=== PATIENT | female | born 1955 | race Caucasian/White ===

== ENCOUNTER 2018-02-09 12:00 | Day surgery (SDC) | payer OTHER ==
--- NOTE | 2018-02-08 10:38 | RAD REPORT ---
EXAM DESCRIPTION: RADOP - Outpt Chest Pa/Lat (2 Views) - 02/08/2018 10:32 am CLINICAL HISTORY: Chest pain. COPD. Hypertension. COMPARISON: 04/08/2011 TECHNIQUE: PA and lateral views of the chest were obtained. FINDINGS: The lungs are hyperexpanded compatible with COPD. The heart is upper limit of normal in si ze. No fracture or aggressive bony process. IMPRESSION: COPD without acute process identified.
[2018-02-08 10:58] LABS: Absolute Lymphocytes (CBC) 1.9 K/uL (0.7-4.9); Absolute Monocytes 0.5 K/uL (0.1-1.3); Absolute Neutrophil 5.3 K/uL (1.8-8.0); Basophils % 0.6 % (0-1.3); Eosinophils % 1.7 % (0-4.4); Hematocrit 43.3 % (36.0-45.0); Lymphocytes % 23.9 % (15.3-44.8); MCH 31.9 pg (27.0-35.0); MCV 93.9 fL (80-100); MPV 8.6 fL (7.6-11.3); Monocytes % 6.2 % (3.3-12.3); RBC Red Blood Cell Count 4.61 M/uL (3.86-4.86)
[2018-02-08 11:08] LABS: Urine Appearance CLEAR; Urine Bilirubin NEGATIVE (NEG); Urine Blood NEGATIVE (NEG); Urine Color YELLOW; Urine Glucose NEGATIVE (NEG); Urine Protein NEGATIVE (NEG); Urine Specific Gravity <=1.005 (1.005-1.030); Urine Urobilinogen 0.2 mg/dL (0.2-1.0)
[2018-02-08 11:16] LABS: Urine Microscopic Reflex NO UMIC
[2018-02-09] MEDS ORDERED: Ringers Lactate 1,000 ML IV ONE (12:25)
[2018-02-09] MEDS ORDERED: CEFAZOLIN/SWI 1gm 1 GM/10 ML SYR ONE (12:25)
[2018-02-09] MEDS ORDERED: PROPOFOL 200 MG/20 ML VIAL IV ONE (13:01)
[2018-02-09] MEDS ORDERED: LIDOCAINE 2% MPF 5 ML VIAL ONE (13:01)
[2018-02-09] MEDS ORDERED: MIDAZOLAM HCL 2 MG/2 ML INJ ONE (13:01)
[2018-02-09] MEDS ORDERED: ONDANSETRON 4 MG/2 ML VIAL ONE (13:02)
[2018-02-09] MEDS ORDERED: FENTANYL CITR 100 MCG/2 ML ONE ×2 (13:02→13:52)
[2018-02-09] MEDS ORDERED: Mastisol Adhesive Liq ONE (14:28)
[2018-02-09] MEDS: MEPERIDINE HCL 25 MG/0.5 ML ONE ×2 (14:39→14:42)
[2018-02-09] MEDS: MORPHINE 4 MG/ML SYR ONE ×2 (15:00→15:13)
[2018-02-09] MEDS ORDERED: MEPERIDINE HCL 50 MG/ML AMP ONE (15:05)
[2018-02-09] MEDS ORDERED: DIPHENHYDRAMINE 50 MG/ML VIAL ONE (15:12)
[2018-02-09] MEDS ORDERED: CODEINE 30MG/APAP 300MG TAB ONE (16:07)
--- NOTE | 2018-02-10 09:18 | OP ---
Surgeon: Car Del Angel MD Associate Financial Advisor: Stevenson. Preoperative Diagnosis: Degeneration of left trapezium. Postoperative Diagnosis: Degeneration of left trapezium. Procedure Performed: Trapeziectomy, Morgan implant, and beak ligament reconstruction splint. Anesthesia: General. Procedure In Detail: After satisfactory induction of general anesthesia, the left arm prepped with Betadine scrub, Betadine paint, dry sterile drapes, placed in the usual manner. The arm was elevated, exsanguinated with an Esmarch , tourniquet inflated to 250 mmHg. Hand placed on the [place] table. A bayonet shaped incision made over the thumb metacarpal and over the flexor carpi radialis. Dissection proceeded down with a scalpel and then tenotomy scissors. Branches of the radial nerve were identified and retracted. Incision was made down the periosteum over the metacarpal thumb and dissection proceeded between the abductor and extensor pollicis brevis. The incision was made into the capsule and the trapezium removed piecemeal with a rongeur. The bone was cut with a transverse saw of the first metacarpal and then it was cored out with a broaches. Sizers were placed and appropriate size with #1. At this point, we then made a cut to reconstruct the beak ligament. The patient has had a counter incision made in the forarm the muscle tendon junction . a wire was used to strip the tendon into 2 halves, radial ulnar and the tendon was then passed into the previous resection site of the trapezium. The patient then had the wound irrigated with saline. The partial tendon was made into the ligament. The passage through the hole made by Eddie bur and sewn with 4-0 Mersilene. Then, a loop was made again with the tendon then the tendon was wraped around the implant and the capsule and tendon passed ulnar to the abductor pollicis longus and then under the extensor pollicis brevis, sewn back to itself. tourniquet released. Electrocautery used for hemostasis. Wound was closed with upside down running 4-0 PDS on both wounds. Dressings of tincture of benzoin, Steri-Strips, 2 inch Philomena, and thumb spica splint holding the thumb and extension at the IPJ, and mcp joint. The patient tolerated the procedure well and returned to recovery GH/MODL Voice ID: [id number] Report ID: [id number] MTDOlive
== END 2018-02-09 16:41 | disposition home or self-care (01) ==
LOC: OR 12:00
PROVIDERS: ATTEND Specialist
PROC: 0RU Upper Joints, Supplement (ICD-10-PCS; principal; 2018-02-09 13:00)
DX: M89.8X4 Other specified disorders of bone, hand (principal); M81.0 Age-related osteoporosis without current pathological fracture; I10 Essential (primary) hypertension; J44.9 Chronic obstructive pulmonary disease, unspecified; G47.33 Obstructive sleep apnea (adult) (pediatric); F17.200 Nicotine dependence, unspecified, uncomplicated
CPT/HCPCS: 36415; 71046; 81003; 85025; 88304; 88305; 88311; J0690; J2175; J2250; J2405; J3010

== ENCOUNTER 2018-08-19 07:59 | Day surgery (SDC) | payer OTHER ==
[~2018-08-19 07:59] MED LIST: FENTANYL CITR 100 MCG/2 ML ONE; MIDAZOLAM HCL 2 MG/2 ML INJ ONE; ONDANSETRON 4 MG/2 ML VIAL ONE; PROPOFOL 200 MG/20 ML VIAL IV ONE
[2018-08-19] MEDS ORDERED: LIDOCAINE 1% MPF 2 ML AMPULE ONE (08:01)
--- OUTSIDE RECORDS SUMMARY | 2018-08-19 08:10 | XMS REPORT | Clinical Summary ---
:1955 Author Organization [facility] Address [address] [place] [address] Care Team Providers Name Role Phone Unavailable Primary Care Provider Unavailable Allergies Not on File Current Medications Not on file Active Problems Not on file Social History Tobacco Use Types Packs/Day Years Used Date Never Assessed Sex Assigned at Date Recorded Not on file Last Filed Vital Signs Not on file Plan of Treatment Not on file Results Not on fileafter 08/18/2017
[2018-08-19] MEDS ORDERED: CEFAZOLIN/SWI 1gm 1 GM/10 ML SYR ONE (08:15)
[2018-08-19] MEDS ORDERED: Ringers Lactate 1,000 ML IV ONE (08:15)
[2018-08-19] MEDS ORDERED: NA CHLORIDE 0.9% 0 ML ONE (08:23)
[2018-08-19] MEDS ORDERED: Mastisol Adhesive Liq ONE ×2 (08:24→11:05)
[2018-08-19] MEDS ORDERED: FENTANYL CITR 100 MCG/2 ML ONE (10:08)
[2018-08-19] MEDS: MORPHINE 4 MG/ML SYR ONE ×6 (11:40→12:24)
[2018-08-19] MEDS ORDERED: CODEINE 30MG/APAP 300MG TAB ONE (12:52)
--- NOTE | 2018-08-19 22:42 | OP ---
Surgeon: Car Del Angel MD Fish Conservationist: Stevenson. Preoperative Diagnosis: Degenerative right trapezium and cyst of the right middle finger DIP. Postoperative Diagnosis: Degenerative right trapezium and cyst of the right middle finger DIP. Procedure: Trapezium resection, implant reconstruction, ligament reconstruction, and excision of exo stosis and mucous cyst from the right middle finger, splint. Anesthesia: General. Procedure In Detail: After satisfactory induction of general anesthesia, right arm was prepped with Betadine scrub, Betadine paint, dry sterile drapes applied in usual manner. The arm was elevated and exsanguinated with Esmarch. Tourniquet inflated to 250 mmHg. Hand placed on the [place] table. A curvilinear incision was made over the thumb metacarpal extending over the flexor carpi radialis. Di ssection proceeded down through skin and subcutaneous tissue. Radial nerve branch was identified and retracted. Incision was made between the abductor and extensor pollicis brevis. Dissection proceed ed down to the periosteum, and the joint was opened. A saw was used to cut the metacarpal that is go ing up the edge, and the saw was used to cut the trapezium in half. It was cracked with a periosteal elevator and removed in piecemeal with a rongeur. All portions were removed and the was used to make a canal in the metacarpal and then were used from the Morgan set, #2 appropr iate size the sizer was placed. A Morgan bur was used to create a hole to reconstruct the beak liga ment. The brown bur was then used again on the epithelioid to create a hollow for the implanted line without dislocating. Once this was completed, the patient then underwent partial flexor carpi radia lis tendon harvest. This was done making a counter incision in the forearm. The tendon was put in m uscle cutaneous junction, from the wire pointing from the distal to proximal and then the t endon was advanced into the site of the previous trapezium. At this point, it was passed through the hole made in the metacarpal head draped around itself sewn with 4-0 Mersilene. Then, the implant wa s placed. The ligament was then expecting lasting around the prosthesis all the way to the extensor pollicis brevis and then lip under the adductor tendon was looped back over the periphery extensor po llicis brevis again. This was done with and 4-0 Mersilene. Attention was then turned to the right m iddle finger dorsal surface. Curvilinear incision was made over the bony exostosis cyst over the rad ial aspect of the DIP joint. The flap was elevated. The mass was excised and then the bony sides we re removed with a rongeur and filed. Electrocautery was used over the remaining site. Tourniquet wa s released for hemostasis. The wounds were closed with 4-0 Prolene simple sutures. The forearm and metacarpal wounds were closed with running nonlocking 4-0 PDS. Tincture of benzoin and Steri-Strips were applied over the forearm and hand, the finger heads with 2 inch Philomena, Kerlix, and a splint hold ing the wrist in 10 degrees of dorsiflexion. The patient tolerated the procedure well and returned t o recovery room. ANGELIQUE Voice ID: [id number] Report ID: [id number]
== END 2018-08-19 15:00 | disposition home or self-care (01) ==
LOC: OR 07:59
PROVIDERS: ATTEND Specialist
PROC: 0PQ Upper Bones, Repair (ICD-10-PCS; 2018-08-19)
PROC: 0PBT0ZZ Excision of Right Finger Phalanx, Open Approach (ICD-10-PCS; 2018-08-19)
PROC: 0RR Upper Joints, Replacement (ICD-10-PCS; principal; 2018-08-19 09:00)
DX: M89.8X4 Other specified disorders of bone, hand (principal); M85.641 Other cyst of bone, right hand; I10 Essential (primary) hypertension; J44.9 Chronic obstructive pulmonary disease, unspecified; F17.200 Nicotine dependence, unspecified, uncomplicated
CPT/HCPCS: 88304; 88305; 88311; J0690; J2001; J2250; J2405; J3010; J7030

== ENCOUNTER → 2023-12-16 | Emergency (ER) | payer MEDICARE ==
[~2023-12-16] MED LIST changes: +HYDROCODONE/APAP 5/325 MG TAB ONE; -MIDAZOLAM HCL 2 MG/2 ML INJ ONE; +NA CHLORIDE 0.9% 1,000 ML ONE; -PROPOFOL 200 MG/20 ML VIAL IV ONE
--- OUTSIDE RECORDS SUMMARY | 2023-12-16 11:26 | XMS REPORT | Continuity of Care Document ---
Author Name Unknown Address [address] [place] [address] [facility] Address [address] [place] [address] [address] [place] [address] Care Team Providers Care Advertising Coordinator Name Role Phone [email or web address]_Kadiyala_S Attending Clinician Unavaila ble Deavers_C Attending Clinician Unavailable Hunt_A Attending Clinician Unavailable PEDROSO_V Attending Clinician Unavailable GC_GCBZW_Kadiyala_S Admitting Clinician Unavaila ble Deavers_C Admitting Clinician Unavailable Hunt_A Admitting Clinician Unavailable PEDROSO_V Admitting Clinician Unavailable Payers Payer Name Policy Type Policy Number Effective Date Expirati on Date Source [facility] (MEDICARE REPLACEMENT HMO) [id number] 2022 00:00:00 Encounters Start Date/Time End Date/Time Encounter Type Admission Type Attending Clinicians Care Facility Care Department Encounter ID Source 2023-12-16 00:00:00 2023-12-16 00:00:00 Outpatient GC_GCBZW_Ka diyala_S PRIV PRIV [id number] [facility] 2023-12-09 00:00:00 2023-12-09 00:00:00 Outpatient GC_GCBZW_Ka diyala_S PRIV PRIV [id number] [facility] 2023-10-28 00:00:00 2023-10-28 00:00:00 Outpatient GC_GCBZW_Ka diyala_S PRIV PRIV [id number] [facility] 2023-09-18 00:00:00 2023-09-18 00:00:00 Outpatient GC_GCBZW_Ka diyala_S PRIV PRIV [id number] [facility] 2023-01-30 00:00:00 2023-01-30 00:00:00 Outpatient Deavers_C DMG DMG [id number] [facility] 2023-01-30 00:00:00 2023-01-30 00:00:00 Outpatient Deavers_C DMG DMG [id number] [facility] 2022-09-05 00:00:00 2022-09-05 00:00:00 Outpatient Hunt_A DMG DMG [id number] [facility] 2022-06-06 07:11:00 2022-06-06 07:11:00 Outpatient PEDROSO_V DMG DMG [id number] [facility] 2022-05-09 05:55:00 2022-05-09 05:55:00 Outpatient PEDROSO_V DMG DMG [id number] [facility] 2022-01-08 11:30:00 2022-01-08 11:30:00 Outpatient DMG DMG [id number] [facility] 2022-01-03 12:00:00 2022-01-03 12:00:00 Outpatient DMG DMG [id number] [facility]
[2023-12-16 12:55] LABS: Absolute Lymphocytes (CBC) 1.3 K/uL (0.7-4.9); Hematocrit 43.2 % (36.0-45.0); Lymphocytes % 14.6 % (15.3-44.8); MCV 97.5 fL (80-100); MPV 7.9 fL (7.6-11.3); Platelets 240 thou/uL (152-406); RBC Red Blood Cell Count 4.43 M/uL (3.86-4.86)
[2023-12-16 12:59] LABS: Specific Gravity 1.014 (1.005-1.030); Urine Bilirubin NEGATIVE (Negative); Urine Blood Negative (Negative); Urine Clarity Clear (Clear); Urine Color Light-Yellow (Yellow); Urine Glucose NEGATIVE (Negative); Urine Protein NEGATIVE (Negative); Urine Urobilinogen Normal (Normal)
[2023-12-16 13:12] LABS: Albumin 3.8 g/dL (3.4-5.0); Bilirubin Total 1.1 mg/dL (0.2-1.0); Potassium 3.5 mEq/L (3.5-5.1)
--- NOTE | 2023-12-16 13:29 | RAD REPORT ---
EXAM DESCRIPTION: RAD - Chest Single View - 12/16/2023 1:09 pm CLINICAL HISTORY: CHEST PAIN Chest pain. COMPARISON: CHEST SINGLE VIEW dated 04/08/2011 FINDINGS: Portable technique limits examination quality. The lungs are emphysematous but grossly clear. The heart is normal in size. No displaced fractures. IMPRESSION: No acute intrathoracic process suspected.
--- NOTE | 2023-12-16 13:42 | RAD REPORT ---
EXAM DESCRIPTION: CT - Thorax W/ Con CLINICAL HISTORY: Chest pain CHEST PAIN COMPARISON: No comparisons FINDINGS: The lungs are diffusely emphysematous but clear. No pleural thickening or pleural effusion . No pneumothorax. Small hiatal hernia noted. No axillary, mediastinal or hilar adenopathy. Subtle nondisplaced fracture left anterolateral fourth and fifth rib. Healing subacute to chronic fra cture noted left lateral seventh and eighth ribs with sclerosis. Dilatation of the right renal pelvis is partially visualized. All CT scans are performed using dose optimization technique as appropriate and may include automated exposure control or mA/KV adjustment according to patient size. IMPRESSION: Subtle nondisplaced left anterolateral fourth and fifth rib fractures suspected without underlying pneumothorax.
--- NOTE | 2023-12-16 14:56 | EDPHYS ---
Physician Documentation [facility] [place] Name: Cordelia Rojas Age: 67 yrs Sex: Female : 1955 Arrival Date: 12/16/2023 Time: 11:23 Bed 15 Private MD: ED Physician Sunil Caballero HPI: 12/16 14:49 This 67 yrs old Female presents to ER via Ambulatory with complaints of Rib licha Pain. 14:49 The patient or guardian reports chest pain that is located primarily in the anterior licha chest wall, left lateral posterior chest and left lateral anterior chest. Onset: The symptoms/episode began/occurred 2 day(s) ago. The pain does not radiate. Associated signs and symptoms: Pertinent positives: shortness of breath. The chest pain is described as sharp. Duration: The patient or guardian reports multiple episodes, that wax and wane. Modifying factors: The symptoms are alleviated by remaining still, the symptoms are aggravated by cough, deep breath, movement, palpation of area. Severity of pain: At its worst the pain was moderate in the emergency department the pain is unchanged. The patient has not experienced similar symptoms in the past. Historical: - Allergies: 11:44 No Known Allergies; ap3 - PMHx: 11:44 Chronic obstructive lung disease; Hypertensive disorder; Hypercholesterolemia; ap3 - Immunization history:: Client reports receiving the 2nd dose of the Covid vaccine, Flu vaccine is up to date. - Social history:: Smoking status: Patient reports the use of cigarette tobacco products, denies chronic smoking, but will smoke occasionally, Reported history of juuling and/or vaping. - Family history:: not pertinent. ROS: 14:49 Constitutional: Negative for fever, chills, and weight loss, Eyes: Negative for injury, licha pain, redness, and discharge, ENT: Negative for injury, pain, and discharge, Neck: Negative for injury, pain, and swelling, Cardiovascular: Negative for chest pain, palpitations, and edema, Abdomen/GI: Negative for abdominal pain, nausea, vomiting, diarrhea, and constipation, Back: Negative for injury and pain, : Negative for injury, bleeding, discharge, and swelling, MS/Extremity: Negative for injury and deformity, Skin: Negative for injury, rash, and discoloration, Neuro: Negative for headache, weakness, numbness, tingling, and seizure, Psych: Negative for depression, anxiety, suicide ideation, homicidal ideation, and hallucinations, Allergy/Immunology: Negative for hives, rash, and allergies, Endocrine: Negative for neck swelling, polydipsia, polyuria, polyphagia, and marked weight changes, Hematologic/Lymphatic: Negative for swollen nodes, abnormal bleeding, and unusual bruising, 14:49 Respiratory: Positive for cough, pleurisy, of the left lateral posterior chest and left lateral anterior chest, shortness of breath, Exam: 14:49 Constitutional: This is a well developed, well nourished patient who is awake, alert, licha and in no acute distress. Head/Face: Normocephalic, atraumatic. Eyes: Pupils equal round and reactive to light, extra-ocular motions intact. Lids and lashes normal. Conjunctiva and sclera are non-icteric and not injected. Cornea within normal limits. Periorbital areas with no swelling, redness, or edema. ENT: Nares patent. No nasal discharge, no septal abnormalities noted. Tympanic membranes are normal and external auditory canals are clear. Oropharynx with no redness, swelling, or masses, exudates, or evidence of obstruction, uvula midline. Mucous membranes moist. Neck: Trachea midline, no thyromegaly or masses palpated, and no cervical lymphadenopathy. Supple, full range of motion without nuchal rigidity, or vertebral point tenderness. No Meningismus. Chest/axilla: Normal chest wall appearance and motion. Nontender with no deformity. No lesions are appreciated. Cardiovascular: Regular rate and rhythm with a normal S1 and S2. No gallops, murmurs, or rubs. Normal PMI, no JVD. No pulse deficits. Abdomen/GI: Soft, non-tender, with normal bowel sounds. No distension or tympany. No guarding or rebound. No evidence of tenderness throughout. Back: No spinal tenderness. No costovertebral tenderness. Full range of motion. Female : Normal external genitalia. Skin: Warm, dry with normal turgor. Normal color with no rashes, no lesions, and no evidence of cellulitis. MS/ Extremity: Pulses equal, no cyanosis. Neurovascular intact. Full, normal range of motion. Neuro: Awake and alert, GCS 15, oriented to person, place, time, and situation. Cranial nerves II-XII grossly intact. Motor strength 5/5 in all extremities. Sensory grossly intact. Cerebellar exam normal. Normal gait. Psych: Awake, alert, with orientation to person, place and time. Behavior, mood, and affect are within normal limits. 14:49 Chest/axilla: Inspection: normal, Palpation: tenderness, that is moderate, of the left lateral posterior chest and left lateral anterior chest, Axilla: are normal, Breasts: are normal, Lymph nodes: lymphadenopathy is not appreciated, 14:49 Respiratory: the patient does not display signs of respiratory distress, Respirations: normal, Breath sounds: are clear throughout, Respiratory rate: 16 Vital Signs: 11:42 BP 143 / 95; Pulse 76; Resp 17; Temp 98.4; Pulse Ox 100% ; Weight 65.77 kg; Height 5 ap3 ft. 5 in. ; Pain 6/10; 14:07 BP 108 / 78; Pulse 78; Resp 16; Pulse Ox 100% on R/A; mb9 15:04 BP 116 / 82; Pulse 74; Resp 18; Pulse Ox 100% on R/A; mb9 11:42 Body Mass Index 24.13 (65.77 kg, 165.1 cm) ap3 11:42 Pain Scale: Adult ap3 Maribell Coma Score: 14:49 Eye Response: spontaneous(4). Motor Response: obeys commands(6). Verbal Response: licha oriented(5). Total: 15. MDM: 11:27 Patient medically screened. licha 14:53 Differential diagnosis: Blunt Chest Trauma Chest Wall Contusion Chest Wall Injury licha Pneumomediastinum Pneumopericardium Pneumothorax Pulmonary Contusion Rib Fracture. Data reviewed: vital signs, nurses notes, lab test result(s), radiologic studies, CT scan, plain films. Consideration of Admission/Observation Escalation of care including admission/observation considered. I considered the following discharge prescriptions or medication management in the emergency department Medications were administered in the Emergency Department. See MAR. Independent interpretation of the following test(s) in the Emergency Department X-Ray: My interpretation is copd. Test considered but Not performed: MRI: no mri chest. Care significantly affected by the following chronic conditions: Hypertension, Chronic Obstructive Pulmonary Disease, Obesity. 12/16 12: Order name: CBC with Diff; Complete Time: 14: [facility] 12/16 12:07 Order name: Comprehensive Metabolic Panel; Complete Time: 14:07 [facility] 12/16 12:07 Order name: Urinalysis w/ reflexes; Complete Time: 14:07 [facility] 12/16 12:07 Order name: Chest Single View XRAY; Complete Time: 14:07 [facility] 12/16 12:07 Order name: CT Chest W/ Con; Complete Time: 14:07 [facility] 12/16 14:08 Order name: INCENTIVE SPIROMETRY licha Administered Medications: 12:40 Drug: Ondansetron IVP 4 mg IVP once; over 2 minutes Route: IVP; Site: right antecubital;mb9 14:08 Follow up: Response: No adverse reaction mb9 12:45 Drug: NS 0.9% IV 500 ml IV at bolus once Route: IV; Rate: bolus; Site: right mb9 antecubital; 12:45 Drug: fentaNYL (PF) IVP 50 mcg IVP once Route: IVP; Site: right antecubital; mb9 14:08 Follow up: Response: No adverse reaction mb9 14:13 Drug: HYDROcodone-acetaminophen PO 5 mg-325 mg 1 tabs PO once Route: PO; mb9 14:23 Follow up: Response: No adverse reaction mb9 14:28 Not Given (Patient Refused): hydrocodone-acetaminophen5 mg-325 mg 1 tabs PO once mb9 Disposition Summary: 12/16/23 14:56 Discharge Ordered Notes: Location: Home [facility] Problem: new [facility] Symptoms: have improved licha Condition: Stable licha Diagnosis - Multiple fractures of ribs, left side - posterior lateral 3rd \T\ 4th licha Followup: licha - With: Private Physician - When: 2 - 3 days - Reason: Recheck today's complaints, Continuance of care, Re-evaluation by your physician Followup: licha - With: Edgar Burnham MD - When: 2 - 3 days - Reason: Recheck today's complaints, Continuance of care, Re-evaluation by your physician Discharge Instructions: - Discharge Summary Sheet [facility] - Rib Fracture [facility] - How to Use an Incentive Spirometer [facility] - Rib Fracture, [id number] [facility] Forms: - Medication Reconciliation Form [facility] - Thank You Letter licha - Antibiotic Education licha - Prescription Opioid Use licha - Patient Portal Instructions [facility] - Leadership Thank You Letter [facility] Prescriptions: - acetaminophen-codeine 300-30 mg Oral tablet - take 2 tablet ORAL route every 6 hours as needed for pain; 26 tablet; Refills: licha 0, Product Selection Permitted - Ibuprofen 600 mg Oral tablet - take 1 tablet ORAL route every 8 hours As needed take with food; 21 tablet; licha Refills: 0, Product Selection Permitted - Valium 2 mg Oral Tablet - take 1 tablet ORAL route every 8 hours As needed; 20 tablet; Refills: 0, licha Product Selection Permitted Signatures: Dispatcher [employer] Sunil Thompson MD MD cha Prokisch, Amanda, RN RN ap3 Veronica Monte RN RN mb9
--- NOTE | 2023-12-16 14:56 | ER ---
Nurse's Notes [facility] [place] Name: Cordelia Rojas Age: 67 yrs Sex: Female : 1955 Arrival Date: 12/16/2023 Time: 11:23 Bed 15 Private MD: Diagnosis: Multiple fractures of ribs, left side-posterior lateral 3rd \\T\\ 4th Presentation: 12/16 11:42 Chief complaint: Patient states: she was at the gym 2-3 days ago, when she felt a "pop" ap3 in her left ribcage. patient reports the pain has been getting increasingly worse over time. patient states the pain is better when she lays down, and worse when she is sitting. patient currently rates her pain as a 6/10 on the pain scale. Coronavirus screen: At this time, the client does not indicate any symptoms associated with coronavirus-19. Ebola Screen: No symptoms or risks identified at this time. Initial Sepsis Screen: Does the patient meet any 2 criteria? No. Patient's initial sepsis screen is negative. Does the patient have a suspected source of infection? No. Patient's initial sepsis screen is negative. Risk Assessment: Do you want to hurt yourself or someone else? Patient reports no desire to harm self or others. Onset of symptoms was December 13, 2023. 11:42 Method Of Arrival: Ambulatory ap3 11:42 Acuity: TRICIA 4 ap3 Triage Assessment: 11:45 General: Appears in no apparent distress. Behavior is calm, cooperative, appropriate ap3 for age. Pain: Complains of pain in left lateral anterior chest Pain currently is 6 out of 10 on a pain scale. Pain began 2-3 days ago. Neuro: Level of Consciousness is awake, alert, obeys commands, Oriented to person, place, time, situation, Appropriate for age Gait is steady, Speech is normal. Cardiovascular: Patient's skin is warm and dry. Respiratory: Airway is patent Respiratory effort is even, unlabored, Respiratory pattern is regular, symmetrical. Historical: - Allergies: 11:44 No Known Allergies; ap3 - PMHx: 11:44 Chronic obstructive lung disease; Hypertensive disorder; Hypercholesterolemia; ap3 - Immunization history:: Client reports receiving the 2nd dose of the Covid vaccine, Flu vaccine is up to date. - Social history:: Smoking status: Patient reports the use of cigarette tobacco products, denies chronic smoking, but will smoke occasionally, Reported history of juuling and/or vaping. - Family history:: not pertinent. Screenin:45 Abuse screen: Denies threats or abuse. Nutritional screening: No deficits noted. ap3 Tuberculosis screening: No symptoms or risk factors identified. 14:08 [facility] ED Fall Risk Assessment (Adult) History of falling in the last 3 months, mb9 including since admission No falls in past 3 months (0 pts) Confusion or Disorientation No (0 pts) Intoxicated or Sedated No (0 pts) Impaired Gait No (0 pts) Mobility Assist Device Used No (0 pt) Altered Elimination No (0 pt) Score/Fall Risk Level 0 - 2 = Low Risk Oriented to surroundings, Maintained a safe environment, Educated pt \\T\\ family on fall prevention, incl call for assistance when getting out of bed. Assessment: 12:19 Reassessment: No changes from previously documented assessment. Patient and/or family ll1 updated on plan of care and expected duration. Pain level reassessed. 12:28 Reassessment: ERP notified of pts pain. VO for pain medication given. See orders for mb9 further information. 14:13 Reassessment: No changes from previously documented assessment. Patient and/or family mb9 updated on plan of care and expected duration. Pain level reassessed. Patient is alert, oriented x 3, equal unlabored respirations, skin warm/dry/pink. 15:04 Reassessment: No changes from previously documented assessment. Patient and/or family mb9 updated on plan of care and expected duration. Pain level reassessed. Patient is alert, oriented x 3, equal unlabored respirations, skin warm/dry/pink. Vital Signs: 11:42 BP 143 / 95; Pulse 76; Resp 17; Temp 98.4; Pulse Ox 100% ; Weight 65.77 kg; Height 5 ap3 ft. 5 in. ; Pain 6/10; 14:07 BP 108 / 78; Pulse 78; Resp 16; Pulse Ox 100% on R/A; mb9 15:04 BP 116 / 82; Pulse 74; Resp 18; Pulse Ox 100% on R/A; mb9 11:42 Body Mass Index 24.13 (65.77 kg, 165.1 cm) ap3 11:42 Pain Scale: Adult ap3 Maribell Coma Score: 14:49 Eye Response: spontaneous(4). Motor Response: obeys commands(6). Verbal Response: licha oriented(5). Total: 15. ED Course: 11:26 Patient arrived in ED. mg5 11:27 Sunil Caballero MD is Attending Physician. licha 11:44 Triage completed. ap3 11:45 Arm band placed on right wrist. ap3 12:19 Veronica Monte, MITALI is Primary Nurse. mb9 12:19 Patient placed in an exam room, on a stretcher. ll1 12:40 Inserted saline lock: 20 gauge in right antecubital area, using aseptic technique. mb9 Blood collected. 12:45 Comprehensive Metabolic Panel Sent. mb9 12:45 CBC with Diff Sent. mb9 12:45 Urinalysis w/ reflexes Sent. mb9 13:10 Chest Single View XRAY In Process Unspecified. EDMS 13:27 Placed in gown. Bed in low position. Call light in reach. Side rails up X 1. Client mb9 placed on continuous cardiac and pulse oximetry monitoring. NIBP monitoring applied. 13:27 No provider procedures requiring assistance completed. mb9 13:29 CT Chest W/ Con In Process Unspecified. EDMS 14:55 Edgar Burnham MD is Referral Physician. licha 14:56 IV discontinued, intact, bleeding controlled, No redness/swelling at site. Pressure mb9 dressing applied. Administered Medications: 12:40 Drug: Ondansetron IVP 4 mg IVP once; over 2 minutes Route: IVP; Site: right antecubital;mb9 14:08 Follow up: Response: No adverse reaction mb9 12:45 Drug: NS 0.9% IV 500 ml IV at bolus once Route: IV; Rate: bolus; Site: right mb9 antecubital; 12:45 Drug: fentaNYL (PF) IVP 50 mcg IVP once Route: IVP; Site: right antecubital; mb9 14:08 Follow up: Response: No adverse reaction mb9 14:13 Drug: HYDROcodone-acetaminophen PO 5 mg-325 mg 1 tabs PO once Route: PO; mb9 14:23 Follow up: Response: No adverse reaction mb9 14:28 Not Given (Patient Refused): hydrocodone-acetaminophen5 mg-325 mg 1 tabs PO once mb9 Medication: 12:29 VIS not applicable for this client. mb9 Outcome: 14:56 Discharge ordered by . licha 15:04 Discharged to home ambulatory, with family, rip 15:04 Condition: stable 15:04 Discharge instructions given to patient, family, Instructed on discharge instructions, follow up and referral plans. Demonstrated understanding of instructions, follow-up care, medications, Prescriptions given X 3, 15:05 Patient left the ED. mb9 Signatures: Dispatcher [employer] EDMS Sunil Caballero MD MD cha Prokisch, Amanda RN RN ap3 Chao Arboleda RN RN ll1 Veronica Monte RN RN mb9 Cyndee Tim mg5
[2023-12-16 16:15] VITALS: BP 116/82; TEMP 98.4; O2SAT 100
== END ==
LOC: ER 11:23
DX: S22.42XA Multiple fractures of ribs, left side, initial encounter for closed fracture (principal); I10 Essential (primary) hypertension; J44.9 Chronic obstructive pulmonary disease, unspecified; F17.210 Nicotine dependence, cigarettes, uncomplicated
CPT/HCPCS: 85025; 36415; 81003; 80053; 71260; 71045; 96375; 96374; 99284; Q9967; J3010; J2405; J7030